=== PATIENT | male | born 1975 | race Caucasian/White ===

== ENCOUNTER 2017-05-04 11:53 | Emergency (ER) | payer MEDICAID ==
[~2017-05-04] VITALS: Ht 167.6 cm; Wt 77.0 kg
[~2017-05-04 11:53] MED LIST: AMLO10TA PO; CLON0.1T20 PO; GABA-530 PO; LEVO500T89 PO; MELA10CA2; METO50TA16 PO; NORT50CA PO; PRIM250T32 PO; SERT50TA10 PO; [UNRECOGNIZED DRUG - CODE] PO
[2017-05-04 14:49] LABS: BASOPHILS % (AUTO) 0.3 % (0-1); EOSINOPHILS # (AUTO) 0.5 X10'3 (0-0.9); EOSINOPHILS % (AUTO) 6.7 % (0-6); HEMATOCRIT 36.3 % (42.0-52.0); HEMOGLOBIN 12.2 g/dl (14.0-17.9); LYMPHOCYTES # (AUTO) 1.4 X10'3 (1.1-4.8); LYMPHOCYTES % (AUTO) 19.5 % (21-51); MEAN CORPUSCULAR HEMOGLOBIN 31.6 PG (27.0-31.0); MEAN CORPUSCULAR HGB CONC 33.6 % (33.0-36.5); MEAN CORPUSCULAR VOLUME 94.1 FL (78-98); MEAN PLATELET VOLUME 7.4 FL (7.4-10.4); MONOCYTES # (AUTO) 0.9 X10'3 (0-0.9); MONOCYTES % (AUTO) 12.8 % (2-12); NEUTROPHILS # (AUTO) 4.2 X10'3 (1.8-7.7); NEUTROPHILS % (AUTO) 60.7 % (42-75); PLATELET COUNT 225 X10'3 (140-440); RED BLOOD COUNT 3.85 X10'6 (4.70-6.10); RED CELL DISTRIBUTION WIDTH 14.5 % (11.5-14.5)
[2017-05-04 15:00] LABS: PROTHROMBIN TIME 10.8 SECONDS (9.0-12.0)
[2017-05-04 15:06] LABS: ALANINE AMINOTRANSFERASE 45 U/L (12-78); ALBUMIN/GLOBULIN RATIO 1.4 (1.1-1.5); ALKALINE PHOSPHATASE 67 IU/L (46-116); ANION GAP 8 (8-16); ASPARTATE AMINO TRANSFERASE 31 U/L (10-37); BILIRUBIN,TOTAL 0.5 MG/DL (0.1-1.0); BLOOD UREA NITROGEN 10 MG/DL (7-18); BUN/CREATININE RATIO 11.1 (5.4-32.0); CALCIUM 8.6 MG/DL (8.5-10.1); CHLORIDE 101 MMOL/L (99-107); ETHANOL < 0.010 GM/DL (0.0-0.010); GLUCOSE 86 MG/DL (70-104); POTASSIUM 3.7 MMOL/L (3.5-5.1); SODIUM 138 MMOL/L (135-145); TOTAL CARBON DIOXIDE 29.4 MMOL/L (24-32); TOTAL PROTEIN 6.8 G/DL (6.4-8.2); eGFR > 90 ML/MIN
[2017-05-04 15:35] LABS: LACTIC SEPSIS 0.9 MMOL/L (0.4-2.0)
[2017-05-04 18:26] VITALS: BP 117/69
== END 2017-05-04 18:28 | disposition home or self-care (01) ==
LOC: ER 11:54
DX: R40.0 Somnolence (principal); I10 Essential (primary) hypertension; J45.909 Unspecified asthma, uncomplicated; F41.9 Anxiety disorder, unspecified; Z86.19 Personal history of other infectious and parasitic diseases; Z98.890 Other specified postprocedural states; Z56.0 Unemployment, unspecified; Z88.8 Allergy status to other drugs, medicaments and biological substances; Z79.899 Other long term (current) drug therapy
CPT/HCPCS: 36415; 71045; 80053; 80320; 82140; 83605; 85025; 85610; 93005; 99285

== ENCOUNTER 2017-05-08 17:04 | Emergency (ER) | payer MEDICAID ==
[~2017-05-08] VITALS: Ht 175.3 cm; Wt 80.0 kg
[2017-05-08 17:42] LABS: PARTIAL THROMBOPLASTIN TIME 26 SECONDS (22-32); PROTHROMBIN TIME 10.1 SECONDS (9.0-12.0)
[2017-05-08 17:45] LABS: CLARITY,URINE CLEAR (Clear); COLOR,URINE YELLOW (Yellow); GLUCOSE, URINE NEGATIVE (Neg); KETONES,URINE NEGATIVE (Neg); LEUKOCYTE ESTERASE ,URINE NEGATIVE (Neg); NITRITES, URINE NEGATIVE (Neg); OCCULT BLOOD,URINE NEGATIVE (Neg); PROTEIN,URINE NEGATIVE (Neg); UROBILINOGEN,URINE 0.2 E.U/dL (0.2-1.0)
[2017-05-08 17:46] LABS: ALANINE AMINOTRANSFERASE 100 U/L (12-78); ALBUMIN 3.1 G/DL (3.4-5.0); ALBUMIN/GLOBULIN RATIO 0.9 (1.1-1.5); ALKALINE PHOSPHATASE 85 IU/L (46-116); ANION GAP 3 (8-16); ASPARTATE AMINO TRANSFERASE 94 U/L (10-37); BILIRUBIN,TOTAL 0.2 MG/DL (0.1-1.0); BLOOD UREA NITROGEN 2 MG/DL (7-18); CALCIUM 8.6 MG/DL (8.5-10.1); CHLORIDE 103 MMOL/L (99-107); CREATININE 0.66 MG/DL (0.60-1.10); GLUCOSE 98 MG/DL (70-104); POTASSIUM 3.6 MMOL/L (3.5-5.1); SODIUM 138 MMOL/L (135-145); TOTAL CARBON DIOXIDE 31.6 MMOL/L (24-32); TOTAL PROTEIN 6.4 G/DL (6.4-8.2); eGFR > 90 ML/MIN
[2017-05-08 17:48] LABS: UA COLLECTION TYPE FOLEY CATH
[2017-05-08 17:48] LABS: BASOPHILS % (AUTO) 0.1 % (0-1); EOSINOPHILS # (AUTO) 0.1 X10'3 (0-0.9); EOSINOPHILS % (AUTO) 1.3 % (0-6); HEMATOCRIT 35.8 % (42.0-52.0); LYMPHOCYTES # (AUTO) 1.6 X10'3 (1.1-4.8); LYMPHOCYTES % (AUTO) 19.2 % (21-51); MEAN CORPUSCULAR HEMOGLOBIN 31.6 PG (27.0-31.0); MEAN CORPUSCULAR HGB CONC 33.6 % (33.0-36.5); MEAN PLATELET VOLUME 7.6 FL (7.4-10.4); MONOCYTES # (AUTO) 0.7 X10'3 (0-0.9); MONOCYTES % (AUTO) 7.8 % (2-12); NEUTROPHILS % (AUTO) 71.6 % (42-75); PLATELET COUNT 298 X10'3 (140-440); RED CELL DISTRIBUTION WIDTH 15.1 % (11.5-14.5); WHITE BLOOD COUNT 8.3 X10'3 (4.5-11.0)
[2017-05-08 17:51] LABS: URINE AMPHETAMINE SCREEN POSITIVE (Neg); URINE BARBITUATE SCREEN POSITIVE (Neg); URINE BENZODIAZEPINES SCREEN POSITIVE (Neg); URINE CANNABINOID SCREEN POSITIVE (Neg); URINE COCAINE SCREEN NEGATIVE (Neg); URINE METHADONE SCREEN NEGATIVE (Neg); URINE OPIATE SCREEN NEGATIVE (Neg); URINE PHENCYCLIDINE SCREEN NEGATIVE (Neg)
[2017-05-08 17:57] LABS: ACETAMINOPHEN < 2.0 UG/ML (10-30); ETHANOL 0.249 GM/DL (0.0-0.010)
[2017-05-08] MEDS ORDERED: GABA-532 PO (18:17)
[2017-05-08] MEDS ORDERED: OMEP20CA10 PO (18:17)
[2017-05-08] MEDS ORDERED: SERT100T10 PO (18:17)
[2017-05-08] MEDS ORDERED: SIMV20TA5 PO (18:17)
[2017-05-08] MEDS ORDERED: PRIM250T48 PO (18:17)
[2017-05-08 22:22] LABS: MAGNESIUM 1.8 MG/DL (1.5-2.4)
[2017-05-09] MEDS ORDERED: haloperidol lactate 5mg/ml inj IM ONE (02:35)
[2017-05-09] MEDS ORDERED: diphenhydrAMINE 50 mg/ml inj IM ONE (02:35)
[2017-05-09] MEDS ORDERED: LORazepam 2 mg/ml vial IM ONE (02:35)
[2017-05-09] MEDS: MESSAGE TO NURSING PO NR ×2 (03:27→10:49)
[2017-05-09] MEDS ORDERED: pantoprazole 40mg Tablet.DR PO SCH (07:30)
[2017-05-09] MEDS ORDERED: amLODIPine 5mg tablet PO SCH (08:00)
[2017-05-09] MEDS ORDERED: gabapentin 300mg capsule PO SCH (08:00)
[2017-05-09] MEDS ORDERED: metoprolol tartrate 50mg tablet PO SCH (08:00)
[2017-05-09] MEDS ORDERED: cloNIDine 0.1 mg tablet PO SCH (08:00)
[2017-05-09] MEDS ORDERED: primidone 250mg tablet PO SCH ×2 (08:00)
[2017-05-09] MEDS ORDERED: clonazePAM 0.5mg tablet PO SCH (08:00)
[2017-05-09] MEDS ORDERED: sertraline 50mg tablet PO SCH (08:00)
[2017-05-09] MEDS ORDERED: primidone 50mg tablet PO SCH (08:14)
[2017-05-09 12:31] VITALS: BP 119/77
[2017-05-09] MEDS ORDERED: nortriptyline 25mg capsule PO SCH (20:00)
[2017-05-09] MEDS ORDERED: Melatonin 3mg tablet PO SCH (21:00)
[2017-05-09] MEDS ORDERED: atorvastatin 10mg tablet PO SCH (21:00)
== END 2017-05-09 12:37 | disposition home or self-care (01) ==
LOC: ER 17:04
DX: T42.4X1A Poisoning by benzodiazepines, accidental (unintentional), initial encounter (principal); T42.6X1A Poisoning by other antiepileptic and sedative-hypnotic drugs, accidental (unintentional), initial encounter; R41.82 Altered mental status, unspecified; I10 Essential (primary) hypertension; J45.909 Unspecified asthma, uncomplicated; Z98.890 Other specified postprocedural states; Y92.89 Other specified places as the place of occurrence of the external cause; Z56.0 Unemployment, unspecified
CPT/HCPCS: 36415; 70450; 80053; 80305; 80320; 80329; 81003; 82140; 83735; 84443; 84450; 84460; 85025; 85610; 85730; 93005; 96372; 99285; A4353; J1200; J1630; J2060

== ENCOUNTER 2018-06-20 10:54 | Emergency (ER) | payer MEDICAID ==
[~2018-06-20] VITALS: Ht 167.6 cm; Wt 56.7 kg
[~2018-06-20 10:54] MED LIST changes: -GABA-530 PO; +GABA-532 PO; +GABA300C PO; +OMEP20CA10 PO; +PRIM250T48 PO; +SERT100T10 PO; -SERT50TA10 PO; +SIMV20TA5 PO
--- NOTE | 2018-06-20 12:30 | NUR ---
Pt has no physical complaints at this time, See Provider assessment.
[2018-06-20] MEDS ORDERED: buprenorphine/naloxone 8mg/2mg SL tablet SL PRN ×2 (12:35→14:10)
[2018-06-20 14:10] VITALS: BP 142/97
== END 2018-06-20 14:45 | disposition home or self-care (01) ==
LOC: ER 10:55
DX: F11.23 Opioid dependence with withdrawal (principal); R45.1 Restlessness and agitation; R00.0 Tachycardia, unspecified; I10 Essential (primary) hypertension; I25.10 Atherosclerotic heart disease of native coronary artery without angina pectoris; F12.90 Cannabis use, unspecified, uncomplicated; F15.90 Other stimulant use, unspecified, uncomplicated; Z88.6 Allergy status to analgesic agent; Z88.8 Allergy status to other drugs, medicaments and biological substances; Z79.899 Other long term (current) drug therapy; Z56.0 Unemployment, unspecified; Z87.19 Personal history of other diseases of the digestive system
CPT/HCPCS: 99283

== ENCOUNTER 2018-07-11 12:29 | Emergency (ER) | payer MEDICAID ==
[~2018-07-11] VITALS: Ht 167.6 cm; Wt 53.1 kg
[2018-07-11 12:59] VITALS: BP 160/103
[2018-07-11] MEDS ORDERED: buprenorphine/naloxone 8mg/2mg SL tablet SL ONE ×2 (13:30→14:35)
== END 2018-07-11 15:21 | disposition home or self-care (01) ==
LOC: ER 12:30
DX: F11.23 Opioid dependence with withdrawal (principal); F12.90 Cannabis use, unspecified, uncomplicated; F15.90 Other stimulant use, unspecified, uncomplicated; I10 Essential (primary) hypertension; J44.9 Chronic obstructive pulmonary disease, unspecified; Z98.890 Other specified postprocedural states; Z56.0 Unemployment, unspecified; Z88.8 Allergy status to other drugs, medicaments and biological substances; Z88.6 Allergy status to analgesic agent; Z79.899 Other long term (current) drug therapy
CPT/HCPCS: 99283

== ENCOUNTER 2018-09-03 15:24 | Emergency (ER) | payer MEDICAID ==
[~2018-09-03] VITALS: Ht 167.6 cm; Wt 56.8 kg
[2018-09-03 15:45] VITALS: BP 153/95
--- NOTE | 2018-09-03 16:15 | NUR ---
NOT SEEN BY RN
--- NOTE | 2018-09-03 16:54 | NUR ---
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 HE SIAD HE MIGHT BE BACK TO PICK IT UP TODAY. I TOLD HIM I WOULD LEAVE IT AT THE FRONT FOR HIM WITH A PT SECURITY ORDERLY IT.
== END 2018-09-03 16:15 | disposition home or self-care (01) ==
LOC: ER 15:24
DX: F11.90 Opioid use, unspecified, uncomplicated (principal); I10 Essential (primary) hypertension; J44.9 Chronic obstructive pulmonary disease, unspecified; F12.90 Cannabis use, unspecified, uncomplicated; F15.90 Other stimulant use, unspecified, uncomplicated; Z88.6 Allergy status to analgesic agent; Z88.8 Allergy status to other drugs, medicaments and biological substances; Z56.0 Unemployment, unspecified
CPT/HCPCS: 99281

== ENCOUNTER 2019-04-26 11:23 | Emergency (ER) | payer MEDICAID ==
[~2019-04-26] VITALS: Ht 167.6 cm; Wt 62.0 kg
[~2019-04-26 11:23] MED LIST changes: +CLON0.1T2 PO; -CLON0.1T20 PO; +OMEP-297 PO; -OMEP20CA10 PO; -PRIM250T48 PO; +PRIM250T8 PO; +SIMV-42 PO; -SIMV20TA5 PO
[2019-04-26 11:25] VITALS: BP 136/79
[2019-04-26] MEDS ORDERED: IBUP-1984 PO (12:16)
== END 2019-04-26 12:21 | disposition home or self-care (01) ==
LOC: ER 11:24
DX: M79.672 Pain in left foot (principal); M25.532 Pain in left wrist; I10 Essential (primary) hypertension; J44.9 Chronic obstructive pulmonary disease, unspecified; F41.9 Anxiety disorder, unspecified; F12.90 Cannabis use, unspecified, uncomplicated; F15.90 Other stimulant use, unspecified, uncomplicated; F11.90 Opioid use, unspecified, uncomplicated; F10.99 Alcohol use, unspecified with unspecified alcohol-induced disorder; Z86.19 Personal history of other infectious and parasitic diseases; Z98.890 Other specified postprocedural states; Z56.0 Unemployment, unspecified; Z88.6 Allergy status to analgesic agent; Z88.8 Allergy status to other drugs, medicaments and biological substances; Z79.899 Other long term (current) drug therapy; Y90.9 Presence of alcohol in blood, level not specified
CPT/HCPCS: 29125; 73110; 73630; 99283

== ENCOUNTER 2021-02-17 12:29 | Emergency (ER) | payer MEDICAID ==
[~2021-02-17] VITALS: Ht 167.6 cm; Wt 54.5 kg
[~2021-02-17 12:29] MED LIST changes: +CLON-369 PO; -LEVO500T89 PO; +LEVO500T90 PO; -OMEP-297 PO; +OMEP20CA15 PO; +SERT-434 PO; -SERT100T10 PO; -[UNRECOGNIZED DRUG - CODE] PO
[2021-02-17 12:35] VITALS: BP 170/109
[2021-02-17] MEDS ORDERED: acetaminophen 325mg tablet PO ONE (13:05)
[2021-02-17] MEDS ORDERED: buprenorphine/naloxone 8MG-2MG SUBlingual film SL ONE ×2 (13:25→13:50)
[2021-02-17] MEDS ORDERED: BUPR1FIL3 SL (14:06)
--- NOTE | 2021-02-17 14:35 | NUR ---
Met with patient about substance use and assisted patient in making an appointment with [facility].
== END 2021-02-17 15:01 | disposition home or self-care (01) ==
LOC: ER 12:29
DX: F11.23 Opioid dependence with withdrawal (principal); I10 Essential (primary) hypertension; J44.9 Chronic obstructive pulmonary disease, unspecified; F41.9 Anxiety disorder, unspecified; F12.90 Cannabis use, unspecified, uncomplicated; F15.90 Other stimulant use, unspecified, uncomplicated; Z86.19 Personal history of other infectious and parasitic diseases; Z98.890 Other specified postprocedural states; Z72.89 Other problems related to lifestyle; Z56.0 Unemployment, unspecified; Z88.6 Allergy status to analgesic agent; Z88.8 Allergy status to other drugs, medicaments and biological substances; Z79.899 Other long term (current) drug therapy
CPT/HCPCS: 99283

== ENCOUNTER 2022-06-24 11:39 | Outpatient (CLI) | payer MEDICAID ==
[~2022-06-24 11:39] MED LIST changes: +LEVO-65 PO; -LEVO500T90 PO
== END 2022-06-24 23:59 | disposition home or self-care (01) ==
LOC: LAB 11:39
PROVIDERS: ATTEND General Practice
DX: I51.7 Cardiomegaly (principal); F11.20 Opioid dependence, uncomplicated
CPT/HCPCS: 93005

== ENCOUNTER → 2023-10-11 | Outpatient (CLI) | payer MEDICAID | END | disposition home or self-care (01) | LOC: RAD 12:11 | PROVIDERS: ATTEND Physician Assistant | DX: R00.1 Bradycardia, unspecified (principal); F11.20 Opioid dependence, uncomplicated | CPT/HCPCS: 93005 ==

== ENCOUNTER 2024-02-22 09:51 | Outpatient (CLI) | payer MEDICAID | END 2024-02-22 23:59 | disposition home or self-care (01) | LOC: MRI02 09:51 | PROVIDERS: ATTEND Orthopaedic Surgery | DX: S82.851C Displaced trimalleolar fracture of right lower leg, initial encounter for open fracture type IIIA, IIIB, or IIIC (principal); S82.401A Unspecified fracture of shaft of right fibula, initial encounter for closed fracture; M25.461 Effusion, right knee; M71.21 Synovial cyst of popliteal space [Baker], right knee; M71.561 Other bursitis, not elsewhere classified, right knee; X58.XXXA Exposure to other specified factors, initial encounter; Y93.89 Activity, other specified; Y92.89 Other specified places as the place of occurrence of the external cause; Y99.8 Other external cause status | CPT/HCPCS: 73721 ==